=== PATIENT | female | born 1945 | race Caucasian/White ===

== ENCOUNTER 2016-11-04 14:13 | Outpatient (CLI) | payer MEDICARE, OTHER ==
--- NOTE | 2016-11-18 14:30 | Mammography Report ---
DIGITAL SCREENING MAMMOGRAM: 11/04/2016 CLINICAL INDICATION: A 71-year-old nulliparous patient with personal history of right mastectomy for breast cancer. The patient reports having had previous mammograms in [place], but films are not yet available for sylvia mena. If they become available, an addendum will be issued. Otherwise, this will serve as a new b aseline. TECHNIQUE: Left CC and MLO views were obtained. FINDINGS: The left breast demonstrates heterogeneously dense fibroglandular parenchyma. Coarse and punctate, typically benign calcifications are present. No suspicious masses, clustered microcalcific ations, or regions of architectural distortion are identified. IMPRESSION: BENIGN FINDINGS. RECOMMENDATION: Routine annual screening unless otherwise clinically indicated. BI-RADS category 2, benign findings. STANDARD QUALIFYING STATEMENTS 1. This examination was reviewed with the aid of Computer-Aided Detection (CAD). 2. A negative or benign imaging report should not delay biopsy if clinically suspicious findings are present. Consider surgical consultation if warranted. More than 5% of cancers are not identified by i maging. 3. Dense breasts may obscure an underlying neoplasm. JOB #: [id number] EXT JOB #:[id number]
== END 2016-11-04 14:14 | disposition home or self-care (01) ==
LOC: DI 14:13
PROVIDERS: ATTEND Internal Medicine Hematology & Oncology
DX: Z12.31 Encounter for screening mammogram for malignant neoplasm of breast (principal); Z85.3 Personal history of malignant neoplasm of breast; Z90.11 Acquired absence of right breast and nipple

== ENCOUNTER 2017-06-01 08:00 | Outpatient (CLI) | payer MEDICARE, OTHER ==
[2017-06-01 15:40] LABS: CHOL/HDL RATIO 2.3 (<4.4); CHOLESTEROL 162 mg/dL; HDL CHOLESTEROL 71 mg/dL; LDL/HDL RATIO 1.1 (<4.4); TRIGLYCERIDES 81 mg/dL; VLDL CHOLESTEROL 16 mg/dL
== END 2017-06-01 08:01 | disposition home or self-care (01) ==
LOC: LAB.R 08:00
PROVIDERS: ATTEND Internal Medicine
DX: C50.919 Malignant neoplasm of unspecified site of unspecified female breast (principal); E03.9 Hypothyroidism, unspecified; Z72.89 Other problems related to lifestyle; Z79.899 Other long term (current) drug therapy
CPT/HCPCS: 36415; 80061; 84443; 86803

== ENCOUNTER 2019-12-11 15:17 | Outpatient (CLI) | payer MEDICARE, OTHER ==
[2019-12-11 19:39] LABS: BASOPHILS % (AUTO) 0.5 %; EOSINOPHILS # (AUTO) 0.1 10^3/uL (0.0-0.7); EOSINOPHILS % (AUTO) 1.4 %; HGB - HEMOGLOBIN 13.6 g/dL (12.0-16.0); LYMPHOCYTES # (AUTO) 2.1 10^3/uL (1.5-3.5); LYMPHOCYTES % (AUTO) 35.1 %; MEAN CORPUSCULAR HEMOGLOBIN 30.2 pg (27.0-31.0); MEAN CORPUSCULAR HGB CONC 32.2 g/dL (32.0-36.0); MEAN CORPUSCULAR VOLUME 93.8 fL (81.0-99.0); MEAN PLATELET VOLUME 12.2 fL (7.9-10.8); MONOCYTES # (AUTO) 0.4 10^3/uL (0.0-1.0); MONOCYTES % (AUTO) 6.2 %; NEUTROPHILS # (AUTO) 3.3 10^3/uL (1.5-6.6); NEUTROPHILS % (AUTO) 56.6 %; PLT - PLATELET COUNT 213 10^3/uL (130-450); RED BLOOD COUNT 4.51 10^6/uL (4.20-5.40); RED CELL DISTRIBUTION WIDTH 12.9 % (12.0-15.0); WHITE BLOOD COUNT 5.8 x10^3/uL (4.8-10.8)
[2019-12-11 19:50] LABS: ALBUMIN 4.5 g/dL (3.2-5.5); ALBUMIN/GLOBULIN RATIO 1.6 (1.0-2.2); BILIRUBIN,TOTAL 0.8 mg/dL (0.2-1.0); CALCIUM 9.5 mg/dL (8.5-10.3); CREATININE 0.9 mg/dL (0.4-1.0); TOTAL PROTEIN 7.4 g/dL (6.7-8.2)
[2019-12-11 20:08] LABS: THYROID STIMULATING HORMONE 1.74 uIU/mL (0.34-5.60)
[2019-12-11 20:09] LABS: FREE T3 2.59 pg/mL (2.5-3.9)
[2019-12-11 20:10] LABS: FREE T4 (FREE THYROXINE) 1.09 ng/dL (0.58-1.64)
== END 2019-12-11 15:18 | disposition home or self-care (01) ==
LOC: LAB.S 15:17
PROVIDERS: ATTEND Family Medicine
DX: E03.9 Hypothyroidism, unspecified (principal)
CPT/HCPCS: 36415; 80053; 84439; 84443; 84481; 85025

== ENCOUNTER 2020-01-09 21:05 | Outpatient (CLI) | payer MEDICARE, OTHER | END 2020-01-09 21:06 | disposition critical access hospital (66) | LOC: EMS 21:05 | PROVIDERS: ATTEND Surgery | DX: M79.621 Pain in right upper arm (principal); M25.562 Pain in left knee; M25.561 Pain in right knee; W18.39XA Other fall on same level, initial encounter | CPT/HCPCS: A0425; A0429 ==

== ENCOUNTER 2020-01-09 21:40 | Emergency (ER) | payer MEDICARE, OTHER ==
--- NOTE | 2020-01-09 23:19 | ED Physician Documentation ---
PD HPI UPPER EXT INJURY - Stated complaint Stated Complaint: GLF/ R ARM PX - Chief complaint Chief Complaint: Ext Problem - History obtained from History obtained from: Patient - History of Present Illness Location: Right, Arm Type of injury: Fall Where injury occurred: Home Timing - onset: Enter time (20:00), Today Improved by: Rest, Immobilization Worsened by: Moving, Palpating Associated symptoms: Swelling. No: Weakness, Numbness, Tingling, Discolored Contributing factors: No: Anticoagulated, Prior ortho surgery, Prosthetic joint, Work related Similar symptoms before: Has not had sx before Recently seen: Not recently seen - Additonal information Additional information: while trying to break up fight between her dog and another, large dog, patient was knocked to ground by the large dog. she landed in the grass and upon trying to push herself off the ground, she immediately realized she has injured her right arm (severe pain with attempts to put any pressure on the arm or move it). Review of Systems Cardiac: reports: Reviewed and negative Respiratory: reports: Reviewed and negative GI: reports: Reviewed and negative Skin: reports: Reviewed and negative Musculoskeletal: reports: Joint pain (right shoulder/proximal humerus), Joint swelling. 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 TRAINER: Hysterectomy, Mastectomy HEENT: Tonsil/Adenoidectomy - Present Medications Home Medications: Ambulatory Orders Medication Instructions Recorded Confirmed Levothyroxine [Synthroid] 25 mcg PO QDAC 01/04/15 12/18/19 ALPRAZolam [Alprazolam] 0.25 mg PO DAILY PRN 10/19/16 12/18/19 Acyclovir [Zovirax] 50 gm TP DAILY PRN 10/19/16 12/18/19 Calcium Carbonate [Tums (Calcium 500 mg PO BID 10/19/16 12/18/19 Carbonate 500mg)] Cholecalciferol [Vitamin D3] 5,000 unit PO DAILY 10/19/16 12/18/19 Chromium Picolinate 200 mcg PO DAILY PM 10/19/16 12/18/19 Magnesium Oxide [Magnesium] 600 mg PO DAILY 10/19/16 12/18/19 Melatonin 9 mg PO DAILY PM 10/19/16 12/18/19 Tretinoin [Retin-A] 1 appful TP DAILY PM 10/19/16 12/18/19 Vitamin B Complex 50 - 100 mg PO DAILY 10/19/16 12/18/19 Zinc Gluconate [Zinc] 50 mg PO DAILY 10/19/16 12/18/19 Gabapentin 1 tab PO DAILY #90 capsule 06/23/18 12/18/19 HYDROcod/ACETAM 5/325 [[place] 5/325] 1 - 2 ea PO Q6H PRN #15 tablet 01/10/20 - Allergies Allergies/Adverse Reactions: Allergies Allergy/AdvReac Type Severity Reaction Status Date / Time nitrofurantoin AdvReac Unknown Verified 01/09/20 21:51 [From Macrobid] nitrofurantoin AdvReac Unknown Verified 01/09/20 21:51 macrocrystalline * [From Macrobid] dairy AdvReac Unknown Uncoded 12/18/19 15:36 - Social History Does the pt smoke?: No Smoking Status: Never smoker Does the pt drink ETOH?: No Does the pt have substance abuse?: No - Immunizations Immunizations are current?: Yes - POLST Patient has POLST: No PD ED PE NORMAL - Vitals Vital signs reviewed: Yes - General General: Alert and oriented X 3, No acute distress, Well developed/nourished - HEENT HEENT: Atraumatic, PERRL, EOMI - Neck Neck: No bony TTP - Derm Derm: Normal color, Warm and dry - Neuro Neuro: Alert and oriented X 3, bell maker 2-12 intact, No motor deficit, No sensory deficit Eye Opening: Spontaneous Motor: Obeys Commands Verbal: Oriented GCS Score: 15 PD ED PE EXPANDED - Extremities Extremities: Tenderness, Limited ROM, Right shoulder, Right arm - Neuro Neuro: Normal motor, Normal Sensation Results - Vitals Vitals: Oxygen O2 Source Room air - Rads (name of study) right humerus xrays Radiology: Prelim report reviewed, See rad report PD MEDICAL DECISION MAKING - ED course Complexity details: reviewed results, re-evaluated patient, considered differential, d/w patient Departure - Departure Disposition: Home, Self Care Clinical Impression: Proximal humeral fracture Condition: Good Instructions: ED Fx Shoulder, ED Sling Follow-Up: Reuben Orozco MD [Provider Admit Priv/Credential] - Within 1 week () Prescriptions: HYDROcod/ACETAM 5/325 [[place] 5/325] 1 - 2 ea PO Q6H PRN #15 tablet PRN Reason: Pain Discharge Date/Time: 01/10/20 01:21
[2020-01-09] MEDS ORDERED: BACITRACIN ZINC OINT 1 PACKET TOP STA (23:41)
[2020-01-09] MEDS ORDERED: HYDROcod/ACETAM 5/325 MG TABLET PO STA (23:41)
[2020-01-09] MEDS ORDERED: TETANUS/DIPHTHERIA/PERTUSSIS 0.5 ML SYRINGE IM ONE (23:42)
[2020-01-10 00:20] VITALS: BP 128/78
[2020-01-10] MEDS ORDERED: HYDROcod/ACET 5/325 Prepack 4 PO STA (01:06)
--- NOTE | 2020-01-10 08:36 | XRAY Report ---
PROCEDURE: Humerus RT INDICATIONS: R ARM PAIN/TENDERNESS/ INJURY R ARM TECHNIQUE: 2 views of the humerus were acquired. COMPARISON: None. FINDINGS: Bones: There is a comminuted fracture of the humeral head and neck which is incompletely characteriz ed. The humeral shaft component demonstrated impaction by approximately 2.2 cm. There is a suspected displaced lateral tuberosity fracture component. Mild lateral angulation is also demonstrated. Visual ized ribs appear intact. Soft tissues: No suspicious soft tissue calcifications. IMPRESSION: 1. Comminuted fracture of the humeral head and neck which is incompletely characterized. Given the hu meral shaft impaction as well as suspected greater tuberosity fracture displacement, findings are sug gestive of a Neer 3-part fracture. Further evaluation may be obtained with CT if clinically indicated . Reviewed by: Quan Medina MD on 01/10/2020 8:35 AM PDT Approved by: Quan Medina MD on 01/10/2020 8:35 AM PDT Station ID: [id number]
== END 2020-01-10 01:21 | disposition home or self-care (01) ==
LOC: EDUNIT# → ED 21:40
DX: S42.291A Other displaced fracture of upper end of right humerus, initial encounter for closed fracture (principal); S60.512A Abrasion of left hand, initial encounter; S60.511A Abrasion of right hand, initial encounter; W54.1XXA Struck by dog, initial encounter; Y93.89 Activity, other specified; Y92.007 Garden or yard of unspecified non-institutional (private) residence as the place of occurrence of the external cause; Z23 Encounter for immunization
CPT/HCPCS: 73060; 90471; 90715; 99283; 99284; A9270

== ENCOUNTER 2021-01-20 18:27 | Outpatient (CLI) | payer MEDICARE, OTHER | END 2021-01-20 18:28 | disposition short-term general hospital (02) | LOC: EMS 18:27 | DX: L76.21 Postprocedural hemorrhage of skin and subcutaneous tissue following a dermatologic procedure (principal) | CPT/HCPCS: A0425; A0427 ==

== ENCOUNTER 2021-11-18 09:29 | Outpatient (CLI) | payer MEDICARE, OTHER ==
[2021-11-18 14:48] LABS: ALBUMIN 4.5 g/dL (3.2-5.5); ALBUMIN/GLOBULIN RATIO 1.7 (1.0-2.2); ALKALINE PHOSPHATASE 66 IU/L (42-121); ALT ALANINE AMINOTRANSFERASE 21 IU/L (10-60); AST ASPARTATE AMINOTRANSFERASE 27 IU/L (10-42); BILIRUBIN,TOTAL 0.9 mg/dL (0.2-1.0); BUN - BLOOD UREA NITROGEN 11 mg/dL (6-20); CALCIUM 9.9 mg/dL (8.5-10.3); CARBON DIOXIDE - CO2 27 mmol/L (21-32); CHLORIDE 101 mmol/L (101-111); CREATININE 0.9 mg/dL (0.4-1.0); GFR - MDRD 61 (>89); GLUCOSE 92 mg/dL (70-100); POTASSIUM 3.8 mmol/L (3.5-5.0); SODIUM 138 mmol/L (135-145); TOTAL PROTEIN 7.1 g/dL (6.7-8.2)
[2021-11-18 14:49] LABS: CRP - C-REACTIVE PROTEIN < 1.0 mg/dL (0-1.0)
[2021-11-18 15:01] LABS: BASOPHILS % (AUTO) 0.6 %; EOSINOPHILS # (AUTO) 0.1 10^3/uL (0.0-0.7); EOSINOPHILS % (AUTO) 1.7 %; HGB - HEMOGLOBIN 14.4 g/dL (12.0-16.0); LYMPHOCYTES # (AUTO) 1.8 10^3/uL (1.5-3.5); MEAN CORPUSCULAR HEMOGLOBIN 30.5 pg (27.0-31.0); MEAN CORPUSCULAR HGB CONC 32.7 g/dL (32.0-36.0); MEAN CORPUSCULAR VOLUME 93.2 fL (81.0-99.0); MEAN PLATELET VOLUME 12.4 fL (7.9-10.8); MONOCYTES # (AUTO) 0.4 10^3/uL (0.0-1.0); NEUTROPHILS # (AUTO) 2.4 10^3/uL (1.5-6.6); NEUTROPHILS % (AUTO) 50.5 %; PLT - PLATELET COUNT 207 10^3/uL (130-450); RED BLOOD COUNT 4.72 10^6/uL (4.20-5.40); RED CELL DISTRIBUTION WIDTH 13.4 % (12.0-15.0); WHITE BLOOD COUNT 4.7 x10^3/uL (4.8-10.8)
[2021-11-18 16:38] LABS: RHEUMATOID FACTOR NEGATIVE (Negative)
[2021-11-19 14:09] LABS: ANTI-DNA (DS) AB QN 1 IU/mL (0-9); CENTROMERE B ANTIBODIES <0.2 AI (0.0-0.9); CHROMATIN ANTIBODIES <0.2 AI (0.0-0.9); JO-1 AB <0.2 AI (0.0-0.9); RIBOSOMAL P ANTIBODIES <0.2 AI (0.0-0.9); RNP ANTIBODIES <0.2 AI (0.0-0.9); SCLERODERMA-70 ANTIBODIES <0.2 AI (0.0-0.9); SJOGREN'S ANTI-SS-A <0.2 AI (0.0-0.9); SJOGREN'S ANTI-SS-B <0.2 AI (0.0-0.9); SMITH ANTIBODIES <0.2 AI (0.0-0.9); SMITH/RNP ANTIBODIES <0.2 AI (0.0-0.9)
[2021-11-20 23:07] LABS: CYCLIC CITRULLINATED PEP IGG/A <1 units (0-19)
== END 2021-11-18 09:30 | disposition home or self-care (01) ==
LOC: LAB.S 09:29
PROVIDERS: ATTEND Internal Medicine
DX: M19.049 Primary osteoarthritis, unspecified hand (principal); D53.9 Nutritional anemia, unspecified; R79.89 Other specified abnormal findings of blood chemistry
CPT/HCPCS: 36415; 80053; 84443; 85025; 85651; 86140; 86200; 86225; 86235; 86430

== ENCOUNTER 2022-01-18 09:10 | Outpatient (CLI) | payer MEDICARE, OTHER ==
[2022-01-18 15:35] LABS: CHOL/HDL RATIO 2.5 (<4.4); CHOLESTEROL 191 mg/dL; HDL CHOLESTEROL 75 mg/dL; LDL CHOLESTEROL,CALCULATED 108 mg/dL; LDL/HDL RATIO 1.4 (<4.4); TRIGLYCERIDES 40 mg/dL; VLDL CHOLESTEROL 8 mg/dL
[2022-01-18 18:48] LABS: ESTIMATED AVERAGE GLUCOSE 105 mg/dL (70-100); HEMOGLOBIN A1c% 5.3 % (4.27-6.07)
[2022-01-19 02:07] LABS: HCV AB <0.1 s/co ratio (0.0-0.9)
== END 2022-01-18 09:11 | disposition home or self-care (01) ==
LOC: LAB.S 09:10
PROVIDERS: ATTEND Internal Medicine
DX: D53.9 Nutritional anemia, unspecified (principal); Z11.59 Encounter for screening for other viral diseases; Z83.3 Family history of diabetes mellitus; R73.01 Impaired fasting glucose; R79.9 Abnormal finding of blood chemistry, unspecified
CPT/HCPCS: 36415; 80061; 82607; 83036; 83721; 86803

== ENCOUNTER 2023-01-14 08:37 | Outpatient (CLI) | payer MEDICARE, OTHER ==
[2023-01-14 15:10] LABS: BASOPHILS % (AUTO) 0.8 %; EOSINOPHILS # (AUTO) 0.1 10^3/uL (0.0-0.7); EOSINOPHILS % (AUTO) 1.8 %; HCT - HEMATOCRIT 42.1 % (37.0-47.0); HGB - HEMOGLOBIN 13.7 g/dL (12.0-16.0); LYMPHOCYTES # (AUTO) 1.6 10^3/uL (1.5-3.5); LYMPHOCYTES % (AUTO) 32.2 %; MEAN CORPUSCULAR HEMOGLOBIN 30.8 pg (27.0-31.0); MEAN CORPUSCULAR HGB CONC 32.5 g/dL (32.0-36.0); MEAN CORPUSCULAR VOLUME 94.6 fL (81.0-99.0); MEAN PLATELET VOLUME 11.6 fL (7.9-10.8); MONOCYTES # (AUTO) 0.4 10^3/uL (0.0-1.0); MONOCYTES % (AUTO) 8.6 %; NEUTROPHILS # (AUTO) 2.8 10^3/uL (1.5-6.6); NEUTROPHILS % (AUTO) 56.4 %; PLT - PLATELET COUNT 212 10^3/uL (130-450); RED BLOOD COUNT 4.45 10^6/uL (4.20-5.40); RED CELL DISTRIBUTION WIDTH 12.9 % (12.0-15.0); WHITE BLOOD COUNT 4.9 x10^3/uL (4.8-10.8)
[2023-01-14 15:42] LABS: T4 (THYROXINE) 9.09 ug/dL (6.09-12.23)
[2023-01-14 15:46] LABS: THYROID STIMULATING HORMONE 2.44 uIU/mL (0.34-5.60)
[2023-01-14 15:48] LABS: FREE T3 2.51 pg/mL (2.5-3.9); FREE T4 (FREE THYROXINE) 1.23 ng/dL (0.58-1.64)
[2023-01-14 16:06] LABS: ALBUMIN 4.2 g/dL (3.2-5.5); ALBUMIN/GLOBULIN RATIO 1.5 (1.0-2.2); ALKALINE PHOSPHATASE 57 IU/L (42-121); ALT ALANINE AMINOTRANSFERASE 22 IU/L (10-60); AST ASPARTATE AMINOTRANSFERASE 25 IU/L (10-42); BILIRUBIN,TOTAL 0.8 mg/dL (0.2-1.0); BUN - BLOOD UREA NITROGEN 9 mg/dL (6-20); CALCIUM 9.6 mg/dL (8.5-10.3); CARBON DIOXIDE - CO2 26 mmol/L (21-32); CHLORIDE 107 mmol/L (101-111); CHOL/HDL RATIO 2.4 (<4.4); CHOLESTEROL 167 mg/dL; CREATININE 0.9 mg/dL (0.4-1.0); GFR - MDRD 61 (>89); GLUCOSE 94 mg/dL (70-100); HDL CHOLESTEROL 69 mg/dL; LDL CHOLESTEROL,CALCULATED 90 mg/dL; LDL/HDL RATIO 1.3 (<4.4); SODIUM 139 mmol/L (135-145); TRIGLYCERIDES 41 mg/dL; VLDL CHOLESTEROL 8 mg/dL
[2023-01-15 07:09] LABS: THYROID PEROXIDASE (TPO) AB <9 IU/mL (0-34)
[2023-01-15 18:07] LABS: THYROGLOBULIN ANTIBODY <1.0 IU/mL (0.0-0.9)
== END 2023-01-14 08:38 | disposition home or self-care (01) ==
LOC: LAB.S 08:37
PROVIDERS: ATTEND Physician Assistant
DX: E34.9 Endocrine disorder, unspecified (principal); N95.1 Menopausal and female climacteric states; E27.49 Other adrenocortical insufficiency; L65.9 Nonscarring hair loss, unspecified; Z85.3 Personal history of malignant neoplasm of breast; E03.9 Hypothyroidism, unspecified; Z13.220 Encounter for screening for lipoid disorders; Z13.0 Encounter for screening for diseases of the blood and blood-forming organs and certain disorders involving the immune mechanism
CPT/HCPCS: 36415; 80053; 80061; 83721; 84436; 84439; 84443; 84480; 84481; 84482; 85025; 86376; 86800